=== PATIENT | male | born 1995 | race African-American/Black ===

== ENCOUNTER 2020-08-07 01:30 | Emergency (ER) | payer SELFPAY ==
[~2020-08-07] VITALS: Ht 175.3 cm; Wt 75.0 kg
[2020-08-07 01:44] VITALS: BP 116/83
[2020-08-07] MEDS ORDERED: IPRATROPIUM/ALBUTEROL 0.5-3(2.5)MG/3ML NEB HHN ONE (02:00)
== END 2020-08-07 03:57 | disposition home or self-care (01) ==
LOC: ER 02:28
DX: J45.901 Unspecified asthma with (acute) exacerbation (principal); Z98.890 Other specified postprocedural states
CPT/HCPCS: 71045; 99283; Z7610

== ENCOUNTER 2021-02-18 19:07 | Emergency (ER) | payer SELFPAY ==
[~2021-02-18] VITALS: Ht 180.3 cm; Wt 65.0 kg
[2021-02-18 19:28] VITALS: BP 100/69
== END 2021-02-18 20:30 | disposition left against medical advice (07) ==
LOC: ER 19:07
DX: Z53.21 Procedure and treatment not carried out due to patient leaving prior to being seen by health care provider (principal); R56.9 Unspecified convulsions; R55 Syncope and collapse; R51.9 Headache, unspecified; R94.31 Abnormal electrocardiogram [ECG] [EKG]
CPT/HCPCS: 93005